=== PATIENT | female | born 1950 | race Asian ===

== ENCOUNTER 2021-12-28 04:11 | Day surgery (SDC) | payer OTHER, BC ==
[2021-12-26 13:25] VITALS: BMI 24.5
[2021-12-28 09:23] VITALS: TEMP 97
[2021-12-28 09:51] VITALS: BP 112/79; PULSE 47; RESP 14
== END 2021-12-28 09:59 | disposition home or self-care (01) ==
LOC: JASU-ENDO 04:11
PROVIDERS: ATTEND Internal Medicine Gastroenterology
PROC: 0DBN8ZX Excision of Sigmoid Colon, Via Natural or Artificial Opening Endoscopic, Diagnostic (ICD-10-PCS; 2021-12-28)
PROC: 0DB68ZX Excision of Stomach, Via Natural or Artificial Opening Endoscopic, Diagnostic (ICD-10-PCS; principal; 2021-12-28 11:15)
DX: Z12.11 Encounter for screening for malignant neoplasm of colon (principal); D12.5 Benign neoplasm of sigmoid colon; I85.00 Esophageal varices without bleeding; Z80.0 Family history of malignant neoplasm of digestive organs
CPT/HCPCS: 88305-TC; 88342-TC